=== PATIENT | male | born 1960 | race Caucasian/White ===

== ENCOUNTER 2018-10-06 16:43 | Emergency (ER) | payer OTHER ==
[~2018-10-06] VITALS: Ht 165.1 cm; Wt 86.7 kg
[~2018-10-06 16:43] MED LIST: HYDR-762 PO; OMEP20CA16 PO; PHEN100C PO
[2018-10-06 17:00] VITALS: Ht 165.1 cm; Wt 86.7 kg
[2018-10-06] MEDS ORDERED: IBUP-1542 PO (21:43)
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
[2018-10-06 21:51] VITALS: BP 162/90; PULSE 64; RESP 18
== END 2018-10-06 21:52 | disposition home or self-care (01) ==
LOC: FTE 16:43
DX: R51 Headache (principal); R20.0 Anesthesia of skin; I25.10 Atherosclerotic heart disease of native coronary artery without angina pectoris; Z86.73 Personal history of transient ischemic attack (TIA), and cerebral infarction without residual deficits
CPT/HCPCS: 70450; 80053; 85025; Z7502